=== PATIENT | male | born 2000 | race Two or more races ===

== ENCOUNTER 2019-01-02 15:50 | Emergency (ER) | payer SELFPAY ==
[2019-01-02] MEDS ORDERED: DIPH/PERTUSS(ACELL)/TETANUS VAC/PF 0.5 ML SYR (>=10YO) IM ONE (15:58)
[2019-01-02 16:00] VITALS: BP 124/84
--- NOTE | 2019-01-02 16:00 | ER Document Report ---
ED Medical Screen (RME) - General Chief Complaint: Laceration Stated Complaint: LEFT ARM LACERATION Time Seen by Provider: 01/02/19 15:58 Mode of Arrival: Ambulatory Information source: Patient Cannot obtain history due to: Other - [place]ian-speaking Notes: 18-year-old male presented to ED for laceration to the left arm. He was using a carpet knife cutting down carpet when he accidentally cut his left arm. His tetanus is not up-to-date. I cannot get a complete history as he does not speak Faroese and the Martti is now in use. He will be reevaluated by another kina alegria before suturing his arm. I have greeted and performed a rapid initial assessment of this patient. A comprehensive ED assessment and evaluation of the patient, analysis of test results and completion of medical decision making process will be conducted by an additional ED providers.
[2019-01-02] MEDS ORDERED: LIDOCAINE 1%/EPINEPHRINE INJ 20 ML VIAL INJ ONE (16:06)
--- NOTE | 2019-01-02 16:09 | ER Document Report ---
HPI - HPI Time Seen by Provider: 01/02/19 15:58 Notes: Patient is a 18-year-old male with no significant past medical history presents complaining laceration to his left upper medial arm by a box liner when he was working on carpet today. Patient is currently accompanied by a friend who spea ks Italian very well. Patient states that he is able to move his arm without any complications or difficulties. The bleeding has been well controlled. Denies drug allergies. Unknown last tetanus. Denies any headache, fever, URI, sore throat, chest pain, palpitations, syncope, cough, shortness of breath, wheeze, dyspnea, abdominal pain, nausea/vomiting/diarrhea, urinary retention, dysuria, hematuria, numbness, tingling, paralysis, or rash. - ROS Systems Reviewed and Negative: Yes All other systems reviewed and negative Past Medical History - General Information source: Patient - Social History Smoking Status: Unknown if Ever Smoked Family History: Reviewed & Not Pertinent Vertical Provider Document - CONSTITUTIONAL Agree With Documented VS: Yes Notes: PHYSICAL EXAMINATION: GENERAL: Well-appearing, well-nourished and in no acute distress. LUNGS: Breath sounds clear to auscultation bilaterally and equal. No wheezes rales or rhonchi. HEART: Regular rate and rhythm without murmurs, rubs, gallops. Musculoskeletal: LUE: FROM to passive/active. Strength 5+/5. N/V intact distal. Brachial/radial pulses intact 2+. There is a 2.5cm linear superficial laceration left upper medial arm w/o active bleeding noted when gauze removed. No bony tenderness. Extremities: No cyanosis, clubbing, or edema b/l. Peripheral pulses 2+. Capillary refill less than 3 seconds. NEUROLOGICAL: Normal speech, normal gait. Normal sensory, motor exams PSYCH: Normal mood, normal affect. SKIN: see above Course - Re-evaluation Re-evalutation: 01/02/19 Patient is an afebrile, well-hydrated, 18-year-old male who presents to the ED with a laceration to his left arm. Vitals are acceptable. PE is otherwise unremarkable for any neurovascular compromise, obvious tendon/ligament rupture, obvious fracture/dislocation, septic joint. Patient is nontoxic-appearing and is tolerating p.o. without difficulties. Wound was thoroughly irrigated and cleansed. Wound edges were approximated appropriately utilizing 4 simple interrupted sutures. Wound dressing was placed and wound instructions reviewed. Patient tolerated procedure well without any complications. Tetanus was updated today. No further labs or imaging warranted. Sutures will need removed in 10 days. Recheck with your PCM in 2-3 days. Consider consult orthopedics if needed. Return to the ED with any worsening/concerning symptoms otherwise as reviewed in discharge. Patient is in agreement. - Vital Signs Vital signs: Temp Pulse Resp BP Pulse Ox 64 18 124/84 64 L 01/02/19 15:59 01/02/19 15:59 01/02/19 15:59 01/02/19 15:59 Procedures - Laceration/Wound Repair Left Arm Wound length (cm): 2.5 Wound's Depth, Shape: Superficial, Linear Laceration pre-procedure: Sterile PPE donned, Sterile drapes applied, Other - Chlorhexidine/saline Anesthetic type: 1% Lidocaine w/epi Volume Anesthetic (mLs): 5 Wound explored: Clean, No foreign body removed Irrigated w/ Saline (mLs): 200 Wound Repaired With: Sutures Suture Size/Type: 4:0, Nylon Number of Sutures: 4 Layer Closure?: No Post-procedure wound care: Sterile dressing applied Post-procedure NV exam normal: Yes Complications: No Discharge - Discharge Clinical Impression: Laceration of left upper arm Qualifiers: Encounter type: initial encounter Qualified Code(s): S41.112A - Laceration without foreign body of left upper arm, initial encounter Condition: Stable Disposition: HOME, SELF-CARE Instructions: Antibiotic Ointment Protection ([facility]), Soap Cleansing ([facility]), Tetanus Immunization Given ([facility]) Additional Instructions: Do not shower or bathe for 24 hours. After 24 hours you may shower but no submersion of the wound under water. Keep the original dressing on the wound for 24 hours unless the drainage soaks through. Change the dressing daily thereafter and keep the knots of the suture material clean from any dried discharge. You may leave the wound open to the air once there is no more discharge. Return to the ED and/or your PCM in 2-3 days for a recheck. Monitor for any signs of worsening pain or redness, purulent drainage, streaks, and/or fever. Return to the ED if noticing any of the above symptoms or as needed. Take medications as directed. Your sutures will need to be removed in 10 days. Prescriptions: Cephalexin Monohydrate [Keflex 500 mg Capsule] 500 mg PO BID #10 capsule Referrals: [facility] ([facility]) [Provider Group] - Follow up as needed
== END 2019-01-02 16:43 | disposition home or self-care (01) ==
LOC: ER 15:50
DX: S41.112A Laceration without foreign body of left upper arm, initial encounter (principal); W27.8XXA Contact with other nonpowered hand tool, initial encounter; Y99.0 Civilian activity done for income or pay; Z23 Encounter for immunization
CPT/HCPCS: 90715; 12001; J3490